=== PATIENT | male | born 1995 | race Caucasian/White ===

== ENCOUNTER 2018-12-01 22:11 | Emergency (ER) | payer MEDICAID ==
[2018-12-01 22:32] VITALS: BP 148/64
--- NOTE | 2018-12-01 23:00 | RADIOLOGY REPORT (SQ) ---
EXAM DESCRIPTION: XR ANKLE 2 VIEWS COMPLETED DATE/TME: 12/01/2018 00:00 CLINICAL HISTORY: 23 years, Male, twisted ankle COMPARISON: None. NUMBER OF VIEWS: 2 TECHNIQUE: 2 view right ankle LIMITATIONS: None. FINDINGS: Negative for fracture or dislocation. Ankle mortise is intact IMPRESSION: Negative exam copyright 2010 [facility] [email or web address]- All Rights Reserved
--- NOTE | 2018-12-02 01:44 | ER Document Report ---
ED Medical Screen (RME) - General Chief Complaint: Ankle Injury Stated Complaint: ANKLE PAIN Time Seen by Provider: 12/02/18 01:36 Notes: Patient states that he was walking down the stairs at a relatives house and he rolled his ankle really bad on the right side and felt a pop. Since injury patient says he is has complete anesthesia from his right ankle through his toes. He has good pulses but is unable to consciously plantar or dorsiflex his foot. No fractures are seen on x-ray I have treated and performed a rapid initial assessment of this patient. A comprehensive ED assessment and evaluation of the patient, analysis of test results and completion of medical decision making process will be conducted by additional ED providers. PHYSICAL EXAMINATION: GENERAL: Well-appearing, well-nourished and in no acute distress. A&Ox4. An swers questions appropriately. LUNGS: Breath sounds clear to auscultation bilaterally and equal. No wheezes rales or rhonchi. HEART: Regular rate and rhythm without murmurs, rubs, gallops. ABDOMEN: Soft, nondistended abdomen. No guarding, no rebound. Normal bowel sounds present. No CVA tenderness bilaterally. + mild epigastric tenderness (cannot elicit thorough abd exam w/o table, however). Extremities: There appears to be some diffuse soft tissue swelling of the right foot and ankle. Good dorsalis pedis pulses on both sides. The right foot can be moved in any direction without any patient discomfort. When asked to plantar and dorsiflex and wiggle his toes, patient says he is unable to. Says it does not hurt but also does not feel anything from his ankle down to the tip of his toes. NEUROLOGICAL: Normal speech, normal gait. PSYCH: Normal mood, normal affect. TRAVEL OUTSIDE OF THE [place] IN LAST 30 DAYS: No - Related Data Allergies/Adverse Reactions: grass pollen-orchard grass, standard [Grass Poll-Orchardgrass,Std] Allergy (Verified 03/23/16 22:07) Past Medical History Pulmonary Medical History: Reports: Hx Asthma Renal/ Medical History: Denies: Hx Peritoneal Dialysis Skin Medical History: Denies Hx MRSA Psychiatric Medical History: Reports: Hx Attention Deficit Hyperactivity Disorder, Hx Bipolar Disorder, Hx Schizophrenia Past Surgical History: Reports: Hx Myringotomy, Hx Tonsillectomy - Immunizations Immunizations up to date: Yes Hx Diphtheria, Pertussis, Tetanus Vaccination: Yes Physical Exam - Vital signs Vitals: Temp Pulse Resp BP Pulse Ox 97.8 F 85 16 148/64 H 99 12/01/18 22:29 12/01/18 22:29 12/01/18 22:29 12/01/18 22:29 12/01/18 22:29 Course - Vital Signs Vital signs: Temp Pulse Resp BP Pulse Ox 97.8 F 85 16 148/64 H 99 12/01/18 22:29 12/01/18 22:29 12/01/18 22:29 12/01/18 22:29 12/01/18 22:29
== END 2018-12-02 02:34 | disposition left against medical advice (07) ==
LOC: ER 22:11
DX: S99.919A Unspecified injury of unspecified ankle, initial encounter (principal); R20.0 Anesthesia of skin; X50.9XXA Other and unspecified overexertion or strenuous movements or postures, initial encounter; Y92.009 Unspecified place in unspecified non-institutional (private) residence as the place of occurrence of the external cause; R10.816 Epigastric abdominal tenderness; J45.909 Unspecified asthma, uncomplicated; Z91.048 Other nonmedicinal substance allergy status; Z53.20 Procedure and treatment not carried out because of patient's decision for unspecified reasons
CPT/HCPCS: 99281

== ENCOUNTER 2019-05-28 10:19 | Emergency (ER) | payer SELFPAY ==
[2019-05-28 10:26] VITALS: BP 120/70
--- NOTE | 2019-05-28 12:20 | ER Document Report ---
ED General - General Chief Complaint: Numbness Stated Complaint: NUMBNESS Time Seen by Provider: 05/28/19 12:19 Primary Care Provider: YANY ARCEO PA-C [Primary Care Provider] - Follow up as needed Mode of Arrival: Medic TRAVEL OUTSIDE OF THE [place] IN LAST 30 DAYS: No - HPI Onset: Other - Pt. was not in the room when I went in to evaluate him. I will k eep his chart available until we are sure he is not going to return - Related Data Allergies/Adverse Reactions: grass pollen-orchard grass, standard [Grass Poll-Orchardgrass,Std] Allergy (Verified 03/23/16 22:07) Past Medical History - Social History Smoking Status: Never Smoker Family History: Reviewed & Not Pertinent Patient has suicidal ideation: No Patient has homicidal ideation: No Pulmonary Medical History: Reports: Hx Asthma Renal/ Medical History: Denies: Hx Peritoneal Dialysis Skin Medical History: Denies Hx MRSA Psychiatric Medical History: Reports: Hx Attention Deficit Hyperactivity Disorder, Hx Bipolar Disorder, Hx Schizophrenia Past Surgical History: Reports: Hx Myringotomy, Hx Tonsillectomy - Immunizations Immunizations up to date: Yes Hx Diphtheria, Pertussis, Tetanus Vaccination: Yes Physical Exam - Vital signs Vitals: Temp Pulse Resp BP Pulse Ox 98.3 F 66 16 120/70 99 05/28/19 10:24 05/28/19 10:24 05/28/19 10:24 05/28/19 10:24 05/28/19 10:24 Course - Vital Signs Vital signs: Temp Pulse Resp BP Pulse Ox 98.3 F 66 16 120/70 99 05/28/19 10:24 05/28/19 10:24 05/28/19 10:24 05/28/19 10:24 05/28/19 10:24 Discharge - Discharge Clinical Impression: Numbness Condition: Stable Disposition: ELOPED Additional Instructions: rest, return if worse Referrals: YANY ARCEO PA-C [Primary Care Provider] - Follow up as needed
== END 2019-05-28 12:21 | disposition left against medical advice (07) ==
LOC: ER 10:19
DX: R20.0 Anesthesia of skin (principal); J45.909 Unspecified asthma, uncomplicated; Z53.20 Procedure and treatment not carried out because of patient's decision for unspecified reasons; Z91.048 Other nonmedicinal substance allergy status
CPT/HCPCS: 96372; 99281

== ENCOUNTER 2019-06-19 20:18 | Emergency (ER) | payer SELFPAY ==
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
[2019-06-19] MEDS ORDERED: IBUPROFEN 800 MG TABLET PO ONE (23:44)
[2019-06-20 00:02] VITALS: BP 113/72
== END 2019-06-20 00:02 | disposition home or self-care (01) ==
LOC: ER 20:18
DX: M79.672 Pain in left foot (principal); M25.572 Pain in left ankle and joints of left foot
CPT/HCPCS: 73610; 73630; L1902; 99283

== ENCOUNTER 2019-06-28 23:19 | Emergency (ER) | payer MEDICAID ==
[2019-06-28 23:24] VITALS: BP 134/86
== END 2019-06-29 00:05 | disposition left against medical advice (07) ==
LOC: ER 23:19
DX: Z53.21 Procedure and treatment not carried out due to patient leaving prior to being seen by health care provider (principal)

== ENCOUNTER 2019-07-21 08:44 | Day surgery (SDC) | payer MEDICAID ==
[~2019-07-21 08:44] MED LIST: BUPIVACAINE HCL 0.5%/EPI 1:200000 INJ 1.8 ML CARTRIDGE ONE; LIDOCAINE 2% INJ (20 MG/ML) 20 ML MDV ONE; LIDOCAINE 2%/EPINEPHRINE INJ 1.7 ML CARTRIDGE ONE
[2019-07-21 10:09] LABS: HEMATOCRIT 43.1 % (37.9-51.0); HEMOGLOBIN 14.8 g/dL (13.5-17.0); MEAN CORPUSCULAR HGB CONC 34.3 g/dL (32.0-36.0); MEAN CORPUSCULAR VOLUME 90 fl (80-97); PLATELET COUNT 253 10^3/uL (150-450); RED BLOOD COUNT 4.77 10^6/uL (4.35-5.55); RED CELL DISTRIBUTION WIDTH 12.9 % (11.5-14.0); WHITE BLOOD COUNT 6.6 10^3/uL (4.0-10.5)
[2019-07-21] MEDS ORDERED: MIDAZOLAM 2 MG/2 ML INJ ONE (10:40)
[2019-07-21] MEDS ORDERED: FENTANYL CITRATE INJ/PF 100 MCG/2 ML AMPUL ONE (10:40)
[2019-07-21] MEDS ORDERED: ONDANSETRON HCL INJ/PF 4 MG/2 ML SDV ONE (10:41)
[2019-07-21] MEDS ORDERED: DEXAMETHASONE SOD PHOSPHATE INJ 4 MG/1 ML VIAL ONE (10:41)
[2019-07-21] MEDS ORDERED: PROPOFOL INJ 200 MG/20 ML VIAL IV ONE (10:41)
[2019-07-21] MEDS ORDERED: LIDOCAINE 2% INJ (20 MG/ML) 20 ML MDV ONE (11:08)
[2019-07-21] MEDS ORDERED: MORPHINE SULFATE 10 MG/ML INJ IV PRN (11:28)
[2019-07-21] MEDS ORDERED: MEPERIDINE HCL/PF INJ 25 MG/1 ML DISP.SYRIN IV PRN (11:28)
[2019-07-21] MEDS ORDERED: PROMETHAZINE HCL INJ 25 MG/1 ML VIAL IV PRN ×2 (11:28)
[2019-07-21] MEDS ORDERED: DIPHENHYDRAMINE HCL 50 MG/ML VIAL IV PRN (11:28)
[2019-07-21] MEDS ORDERED: FENTANYL CITRATE INJ/PF 100 MCG/2 ML AMPUL IV PRN ×3 (11:28)
--- NOTE | 2019-07-21 12:19 | Operative Report ---
Operative Report DATE OF SURGERY: 07/21/19 PREOPERATIVE DIAGNOSIS: Dental caries and malpositioned and carious wisdom teeth POSTOPERATIVE DIAGNOSIS: Same OPERATION: Surgical extraction of teeth numbers 1, 3, 15, 16, 17, 19 and 32 with alveoloplasties of the upper right, upper left and lower left quadrants SURGEON: JACINTO CESAR ANESTHESIA: GA TISSUE REMOVED OR ALTERED: Teeth and bone which were discarded COMPLICATIONS: None ESTIMATED BLOOD LOSS: 25 mL INTRAOPERATIVE FINDINGS: Nonrestorable and malpositioned teeth PROCEDURE: The patient was brought into operating room #4 and placed on the operating room table in supine position. General anesthesia was induced via a peripheral IV and continued utilizing nasoendotracheal intubation through the right nares. The patient was then prepped and draped in the usual fashion for an intraoral procedure. A total of 8cc of 2% Lidocaine were delivered to the planned surgical sites via both infiltration and nerve block. The oral cavity and oropharynx were suctioned and a moistened oropharyngeal throat pack was placed. A bite block was used throughout the procedure. Full thickness mucoperisteal flaps were elevated. Ostectomy was completed as needed. Teeth were sectioned as needed. Teeth were delivered with elevators and forceps. Alveoloplasties were completed using rongeurs and bone files. All sites debrided and irrigated. No sinus exposure noted. Mandible intact post op. MILTON not visualized. Wounds reapproximated and sutured with 4-0 chromic gut. The oral cavity was suctioned and found to be free of debris. The throat pack was removed. The oropharynx was suctioned. Gauze packs were placed bilaterally to aid in continued hemastasis. The patient was awakened from general anesthesia, extubated in the operating room and taken to recovery in spontaneous breathing fashion.
[2019-07-21] MEDS ORDERED: OXYCODONE-ACETAMINOPHEN 5-325 MG TABLET ONE (13:22)
[2019-07-21] MEDS ORDERED: OXYCODONE-ACETAMINOPHEN 5-325 MG TABLET PO PRN (13:34)
[2019-07-21 14:29] VITALS: BP 112/70
[2019-07-21] MEDS ORDERED: SUCCINYLCHOLINE CHLORIDE INJ 200 MG/10 ML VIAL ONE (17:29)
== END 2019-07-21 14:25 | disposition home or self-care (01) ==
LOC: OROUT 08:44
PROVIDERS: ATTEND Dentist Oral and Maxillofacial Surgery
DX: K02.9 Dental caries, unspecified (principal); K08.89 Other specified disorders of teeth and supporting structures; Z80.0 Family history of malignant neoplasm of digestive organs; Z88.6 Allergy status to analgesic agent
CPT/HCPCS: 41899; 41874 ×3; 36415; 85027; J2250; J3490 ×2; J1100; J3010; J0330; J2405; J2704; 170

== ENCOUNTER 2019-08-14 23:58 | Emergency (ER) | payer MEDICAID ==
--- NOTE | 2019-08-15 00:55 | RADIOLOGY REPORT (SQ) ---
EXAM DESCRIPTION: XR THORACIC SPINE 2 VIEWS COMPLETED DATE/TME: 08/15/2019 00:00 CLINICAL HISTORY: 24 years, Male, jumped off roof, "hx cyst on spine" COMPARISON: None. NUMBER OF VIEWS: 3 TECHNIQUE: 3 views of the thoracic spine LIMITATIONS: None. FINDINGS: Slight wedging of the anterior T11 vertebral body. Accentuation of the normal thoracic kyphosis. Height and alignment is otherwise preserved. The disc spaces are otherwise maintained. IMPRESSION: Accentuation of the normal thoracic kyphosis. Minor anterior wedging of T11. copyright 2010 [employer]- All Rights Reserved
[2019-08-15] MEDS ORDERED: KETOROLAC TROMETHAMINE 60 MG/2 ML SDV IM ONE (04:18)
[2019-08-15] MEDS ORDERED: CYCLOBENZAPRINE HCL 10 MG TABLET PO ONE (04:18)
--- NOTE | 2019-08-15 04:28 | ER Document Report ---
ED General - General Chief Complaint: Back Injury Stated Complaint: BACK PAIN Time Seen by Provider: 08/15/19 03:55 Primary Care Provider: YANY ARCEO PA-C [Primary Care Provider] - Follow up as needed Notes: 24-year-old male presents with mid back pain that started after jumping off the roof of a shed that was approximately 6 to 7 feet. Patient denies any pain to his hips, feet, knees. Patient denies any head injury or LOC. Patient denies any difficulty with urinating or defecating. Patient denies any saddle anesthesia. TRAVEL OUTSIDE OF THE [place] IN LAST 30 DAYS: No - Related Data Allergies/Adverse Reactions: grass pollen-orchard grass, standard [Grass Poll-Orchardgrass,Std] Allergy (Verified 03/23/16 22:07) Home Medications: none Past Medical History - Social History Smoking Status: Never Smoker Chew tobacco use (# tins/day): No Frequency of alcohol use: None Drug Abuse: None Family History: Reviewed & Not Pertinent Patient has suicidal ideation: No Patient has homicidal ideation: No - Past Medical History Cardiac Medical History: Denies: Hx Coronary Artery Disease, Hx Heart Attack, Hx Hypertension Pulmonary Medical History: Reports: Hx Asthma Denies: Hx Bronchitis, Hx COPD, Hx Pneumonia Neurological Medical History: Reports: Hx Seizures - 13 years old. Denies: Hx Cerebrovascular Accident Renal/ Medical History: Denies: Hx Peritoneal Dialysis Musculoskeletal Medical History: Denies Hx Arthritis Skin Medical History: Denies Hx MRSA Psychiatric Medical History: Reports: Hx Attention Deficit Hyperactivity Disorder, Hx Bipolar Disorder, Hx Schizophrenia Past Surgical History: Reports: Hx Myringotomy, Hx Tonsillectomy - Immunizations Immunizations up to date: Yes Hx Diphtheria, Pertussis, Tetanus Vaccination: Yes Review of Systems - Review of Systems Notes: Constitutional: Negative for fever. HENT: Negative for sore throat. Eyes: Negative for visual changes. Cardiovascular: Negative for chest pain. Respiratory: Negative for shortness of breath. Gastrointestinal: Negative for abdominal pain, vomiting or diarrhea. Genitourinary: Negative for dysuria. Musculoskeletal: Positive for back pain. Skin: Negative for rash. Neurological: Negative for headaches, weakness or numbness. 10 point ROS negative except as marked above and in HPI. Physical Exam - Vital signs Vitals: Temp Pulse Resp BP Pulse Ox 97.8 F 80 16 129/64 H 100 08/15/19 00:08 08/15/19 00:08 08/15/19 00:08 08/15/19 00:08 08/15/19 00:08 - Notes Notes: GENERAL: Well-appearing, well-nourished and in no acute distress. HEAD: Atraumatic, normocephalic. EYES: Extraocular movements intact, sclera anicteric, conjunctiva are normal. NECK: Normal range of motion, supple without lymphadenopathy or JVD. EXTREMITIES: Normal range of motion, no pitting or edema. No clubbing or cyanosis. BACK: No spinal tenderness. Mild tenderness to paraspinal muscles to mid thoracic area. No tenderness over T11. 5 out of 5 strength both distally and proximally bilateral lower extremities. 2+ patellar reflexes bilaterally. No clonus. Sensation grossly intact in the bilateral lower extremities. Patient is able to ambulate without difficulty. NEUROLOGICAL: Cranial nerves II through XII grossly intact. Normal speech, normal gait. PSYCH: Normal mood, normal affect. SKIN: Warm, Dry, normal turgor, no rashes or lesions noted. Course - Re-evaluation Re-evalutation: 08/15/19 No rapid progression of symptoms, systemic symptoms including fevers, chills, weight loss, history of recent bacterial infection, bilateral symptoms, numbness, weakness, difficulty walking, urinary retention or bowel incontinence, personal history of cancer, immunosuppression, diabetes, known AAA, or history of IV drug use. Exam is without point tenderness over vertebral bodies, pulsat ile abdominal mass, and patient has symmetric and intact lower extremity strength, sensation, and reflexes without clonus. 2+ symmetric medial malleolar and dorsalis pedis pulses. Based on history and physical, I have a very low suspicion of a concerning etiology of pain including epidural compression syndrome, spinal infection, transverse myelitis, malignancy, abdominal aortic aneurysm, renal colic, acute lower extremity claudication, neurogenic claudication, ankylosing spondylitis, or other intra-abdominal process. Due to absence of concerning risk factors in history and physical as well as absence of rapidly progressive, severe, or bilateral symptoms, will defer further imaging at this point. X-ray shows slight wedging of anterior T11 vertebral body. No point tenderness over T11. Discussed this with pt and will refer to neurosurgery. Pt given pain medication with sedation warning. Strict return precautions discussed. Pt voices understanding and agrees with plan of care. - Vital Signs Vital signs: Temp Pulse Resp BP Pulse Ox 97.8 F 80 16 129/64 H 100 08/15/19 00:12 08/15/19 00:12 08/15/19 00:12 08/15/19 00:12 08/15/19 00:12 Discharge - Discharge Clinical Impression: Thoracic back pain Qualifiers: Chronicity: acute Back pain laterality: bilateral Qualified Code(s): M54.6 - Pain in thoracic spine Condition: Stable Disposition: HOME, SELF-CARE Instructions: Pain Medication Injection ([facility]), Muscle Strain ([facility]), Warm Packs ([facility]) Additional Instructions: Your x-ray showed slight wedging of the anterior T11 vertebral body. Please follow-up with neurosurgeon (information printed out and given to you) in 1 to 2 weeks. Please follow-up with your primary care doctor in 1 week. Please take medications as prescribed. Do not drink or drive while taking Flexeril as it may make you drowsy. Return immediately to the ER if you start having any worsening symptoms, including numbness to your private area, difficulty with urinating or defecating, weakness, numbness, fever, worsening pain, or any other symptoms that are concerning to you. Prescriptions: Cyclobenzaprine HCl [Flexeril 10 mg Tablet] 10 mg PO TIDP PRN #15 tab PRN Reason: Ibuprofen [Motrin 800 mg Tablet] 800 mg PO Q8H PRN #30 tab PRN Reason: Referrals: YANY ARCEO PA-C [Primary Care Provider] - Follow up in 3-5 days
[2019-08-15 04:49] VITALS: BP 128/74
== END 2019-08-15 04:51 | disposition home or self-care (01) ==
LOC: ER 23:58
DX: M54.6 Pain in thoracic spine (principal); M54.9 Dorsalgia, unspecified; W13.2XXA Fall from, out of or through roof, initial encounter; J45.909 Unspecified asthma, uncomplicated
CPT/HCPCS: 72070; J3490; J1885; 96372; 99283